=== PATIENT | male | born 1980 | race Caucasian/White ===

== ENCOUNTER 2021-10-20 20:42 | Emergency (ER) | payer OTHER, BC ==
[2021-10-20] MEDS ORDERED: Orphenadrine Citrate 60 MG/2 ML VIAL ONE (22:16)
== END 2021-10-20 22:40 | disposition home or self-care (01) ==
LOC: MADERS 20:42
DX: S09.90XA Unspecified injury of head, initial encounter (principal); M25.512 Pain in left shoulder; W01.198A Fall on same level from slipping, tripping and stumbling with subsequent striking against other object, initial encounter; Z79.899 Other long term (current) drug therapy
CPT/HCPCS: 70450; 96372; J2360

== ENCOUNTER 2024-01-05 16:07 | Emergency (ER) | payer BC ==
[2024-01-05] MEDS ORDERED: diphenhydrAMINE 50 MG/ML VIAL ONE (16:54)
[2024-01-05] MEDS ORDERED: Triamcinolone 40 MG/ML VIAL ONE (16:54)
== END 2024-01-05 17:35 | disposition home or self-care (01) ==
LOC: MADERS 16:07
DX: T63.461A Toxic effect of venom of wasps, accidental (unintentional), initial encounter (principal); R60.0 Localized edema; F17.210 Nicotine dependence, cigarettes, uncomplicated
CPT/HCPCS: 96372; 99283; J1200; J3301